=== PATIENT | female | born 1985 | race Caucasian/White ===

== ENCOUNTER → 2018-03-20 | Outpatient (CLI) | payer BC ==
[2018-03-22 01:12] LABS: CHLAMYDIA TRACHOMATIS, NAA Negative (Negative); HPV 16 Positive (Negative); HPV 18 Negative (Negative); HPV OTHER HR TYPES Negative (Negative); NEISSERIA GONORRHOEAE, NAA Negative (Negative)
== END | disposition home or self-care (01) ==
LOC: LAB SHORT 10:21 → LAB 10:21
PROVIDERS: Obstetrics & Gynecology
DX: Z36.89 Encounter for other specified antenatal screening (principal)
CPT/HCPCS: 87491; 87591; 87624; 87625; G0123

== ENCOUNTER → 2018-08-09 | Outpatient (CLI) | payer BC | END | disposition home or self-care (01) | LOC: LAB SHORT 15:51 → LAB 15:51 | DX: Z34.00 Encounter for supervision of normal first pregnancy, unspecified trimester (principal) | CPT/HCPCS: 87081; 87653 ==

== ENCOUNTER 2018-09-14 20:20 | Inpatient (IN) | payer BC ==
[~2018-09-14] VITALS: Ht 165.1 cm; Wt 73.6 kg
[2018-09-14] MEDS ORDERED: Verotin-Gr Cap1 EACH PO (23:57)
[2018-09-14] MEDS ORDERED: Excedrin Extra1 EACH PO (23:57)
[2018-09-14] MEDS ORDERED: MAGOXI400 PO (23:58)
[2018-09-15 00:07] LABS: BASOPHILS ABSOLUTE AUTO 0.04 K/mm3 (0.00-0.23); BASOPHILS PERCENT AUTO 0 % (0-2); EOSINOPHILS ABSOLUTE AUTO 0.06 K/mm3 (0.00-0.68); EOSINOPHILS PERCENT AUTO 0 % (0-6); Hematocrit 35.6 % (33.0-51.0); Hemoglobin 11.7 g/dL (11.5-16.0); IMMATURE GRAN ABSOLUTE AUTO 0.12 K/mm3 (0.00-0.10); IMMATURE GRAN PERCENT AUTO 1 % (0-1); LYMPHOCYTES ABSOLUTE AUTO 3.34 K/mm3 (0.84-5.20); LYMPHOCYTES PERCENT AUTO 22 % (21-46); MONOCYTES PERCENT AUTO 7 % (4-13); Mean Corpuscular HGB 30.2 pg (26.0-34.0); Mean Corpuscular HGB Conc 32.9 g/dL (31.5-36.5); Mean Corpuscular Volume 92 fL (80-100); Mean Platelet Volume 9.5 fL (9.1-12.4); NEUTROPHILS PERCENT AUTO 70 % (41-73); Platelet Count 429 K/mm3 (150-400); RDW Coefficient Variation 14.1 % (11.7-14.2); RDW Standard Deviation 47.1 fL (35.1-46.3); Red Blood Cell Count 3.87 M/mm3 (3.80-5.20); White Blood Cell Count 15.06 K/mm3 (4.00-11.30)
[2018-09-16 05:36] LABS: Hematocrit 27.8 % (33.0-51.0); Mean Corpuscular HGB 30.4 pg (26.0-34.0); Mean Corpuscular HGB Conc 32.4 g/dL (31.5-36.5); Mean Corpuscular Volume 94 fL (80-100); Mean Platelet Volume 9.5 fL (9.1-12.4); Platelet Count 336 K/mm3 (150-400); RDW Coefficient Variation 14.1 % (11.7-14.2); RDW Standard Deviation 47.8 fL (35.1-46.3); Red Blood Cell Count 2.96 M/mm3 (3.80-5.20); White Blood Cell Count 15.35 K/mm3 (4.00-11.30)
--- NOTE | 2018-09-16 13:34 | NUR ---
PT DISCHARED. IV DCD. PRESCRIPTIONS GIVEN. DISCHARGE INSTRUCTIONS REVIEWED WITH PT AND SO, BOTH VERBALIZED UNDERSTANDING AND DENY ANY FURTHER QUESTIONS OR CONCERNS. PT AMBULATORY TO CAR.
== END 2018-09-16 13:24 | disposition home or self-care (01) | DRG 807 ==
LOC: OBS 20:20 → BC 20:20 → OBS 23:37 → BC 23:38
PROVIDERS: ADMIT Family Medicine
PROC: 10E0XZZ Delivery of Products of Conception, External Approach (ICD-10-PCS; principal; 2018-09-15)
PROC: 0KQM0ZZ Repair Perineum Muscle, Open Approach (ICD-10-PCS; 2018-09-15)
PROC: 3E0R3BZ Introduction of Anesthetic Agent into Spinal Canal, Percutaneous Approach (ICD-10-PCS; 2018-09-15)
DX: O70.1 Second degree perineal laceration during delivery (principal); Z37.0 Single live birth; Z3A.40 40 weeks gestation of pregnancy
CPT/HCPCS: 36415; 51702; 59025; 80053; 82570; 84156; 85025; 85027; 99214; J1885; J2001; J2405; J2590; J3010; J7120

== ENCOUNTER → 2019-06-18 | Outpatient (CLI) | payer BC ==
[~2019-06-18] MED LIST: Excedrin Extra1 EACH PO; MAGOXI400 PO; Verotin-Gr Cap1 EACH PO
[2019-06-20 14:09] LABS: HPV 16 Negative (Negative); HPV 18 Negative (Negative); HPV OTHER HR TYPES Negative (Negative)
== END ==
LOC: LAB 14:07 → LAB SHORT 14:07
PROVIDERS: Obstetrics & Gynecology
DX: Z01.419 Encounter for gynecological examination (general) (routine) without abnormal findings (principal)
CPT/HCPCS: 87624; G0123

== ENCOUNTER → 2021-11-16 | Outpatient (CLI) | payer BC ==
[2021-11-17 15:10] LABS: HPV 16 Negative (Negative); HPV 18 Negative (Negative); HPV OTHER HR TYPES Negative (Negative)
== END | disposition home or self-care (01) ==
LOC: LAB SHORT 17:03 → LAB 17:03
PROVIDERS: Family Medicine
DX: Z01.419 Encounter for gynecological examination (general) (routine) without abnormal findings (principal)
CPT/HCPCS: 87624; G0123

== ENCOUNTER → 2023-12-21 | Outpatient (CLI) | payer BC ==
[2023-12-21 14:58] LABS: Source, Urine Clean Catch
[2023-12-21 16:08] LABS: Bacteria Many /hpf; Red Blood Cells, Urine 0-2 /hpf (0-2); Squamous Epithelial Cells Few /hpf (Few); White Blood Cells, Urine 0-2 /hpf (0-5)
== END ==
LOC: LAB SHORT 14:54 → LAB 14:54
PROVIDERS: Family Medicine
DX: Z34.81 Encounter for supervision of other normal pregnancy, first trimester (principal)
CPT/HCPCS: 81015; 87086

== ENCOUNTER → 2024-06-24 | Outpatient (CLI) | payer BC | LOC: LAB 17:25 → LAB SHORT 17:25 | DX: O09.93 Supervision of high risk pregnancy, unspecified, third trimester (principal); O99.013 Anemia complicating pregnancy, third trimester | CPT/HCPCS: 87081; 87150 ==

== ENCOUNTER 2024-07-15 07:25 | Inpatient (IN) | payer BC ==
[2024-07-15] VITALS (15 sets, daily range): BP systolic 135–164; BP diastolic 81–100
[~2024-07-15] VITALS: Ht 165.1 cm; Wt 92.0 kg
[2024-07-15] MEDS ORDERED: FentaNYL Citrate 50 MCG/ML 2 ML Injection IV PRN (07:50)
[2024-07-15] MEDS ORDERED: Methylergonovine Maleate 0.2MG / ML 1ML Amp IM PRN (07:55)
[2024-07-15] MEDS ORDERED: OXYTOCIN/RINGER'S LACTATE 500 ML IV PRN (07:55)
[2024-07-15] MEDS ORDERED: Acetaminophen 500 MG Tab PO PRN (07:55)
[2024-07-15] MEDS ORDERED: Lactated Ringer's 1,000 ML IV PRN (07:55)
[2024-07-15] MEDS ORDERED: Oxytocin 10 Unit / ML Vial IM PRN (07:55)
[2024-07-15] MEDS ORDERED: Lactated Ringer's 1,000 ML IV SCH ×3 (07:55→09:05)
[2024-07-15] MEDS ORDERED: Misoprostol 200 MCG Tab BC PRN (07:55)
[2024-07-15] MEDS ORDERED: Ondansetron HCl 2 MG / ML 2ML Vial IV PRN (07:55)
[2024-07-15] MEDS ORDERED: ePHEDrine Sulfate 50 MG/ML 1ML Injection XX PRN (07:55)
[2024-07-15] MEDS ORDERED: Calcium Carbonate 500 MG Tab Chew PO SCH (07:55)
[2024-07-15] MEDS ORDERED: Misoprostol 200 MCG Tab PR PRN ×2 (07:55→09:05)
[2024-07-15] MEDS ORDERED: Tranexamic Acid 100 ML IV SCH (07:55)
[2024-07-15] MEDS ORDERED: Carboprost Tromethamine 250 MCG/ML 1ML Amp IM PRN ×2 (07:55→09:10)
[2024-07-15] MEDS ORDERED: FentaNYL 2mcg/ml-Bup 0.1% Epd 250 ML EPI PRN (07:55)
[2024-07-15 08:26] LABS: BASOPHILS ABSOLUTE AUTO 0.06 K/mm3 (0.00-0.23); BASOPHILS PERCENT AUTO 1 % (0-2); EOSINOPHILS ABSOLUTE AUTO 0.14 K/mm3 (0.00-0.68); EOSINOPHILS PERCENT AUTO 1 % (0-6); Hematocrit 35.2 % (33.0-51.0); Hemoglobin 11.7 g/dL (11.5-16.0); IMMATURE GRAN ABSOLUTE AUTO 0.06 K/mm3 (0.00-0.10); IMMATURE GRAN PERCENT AUTO 1 % (0-1); LYMPHOCYTES ABSOLUTE AUTO 3.75 K/mm3 (0.84-5.20); LYMPHOCYTES PERCENT AUTO 31 % (21-46); MONOCYTES ABSOLUTE AUTO 0.78 K/mm3 (0.16-1.47); MONOCYTES PERCENT AUTO 7 % (4-13); Mean Corpuscular HGB 30.5 pg (26.0-34.0); Mean Corpuscular HGB Conc 33.2 g/dL (31.5-36.5); Mean Corpuscular Volume 92 fL (80-100); Mean Platelet Volume 10.4 fL (9.1-12.4); NEUTROPHILS ABSOLUTE AUTO 7.21 K/mm3 (1.96-9.15); NEUTROPHILS PERCENT AUTO 60 % (41-73); Platelet Count 325 K/mm3 (150-400); RDW Coefficient Variation 16.2 % (11.7-14.2); RDW Standard Deviation 54.3 fL (35.1-46.3); Red Blood Cell Count 3.83 M/mm3 (3.80-5.20)
[2024-07-15 08:47] LABS: Albumin, Blood 2.6 g/dL (3.4-5.0); Albumin/Globulin Ratio 0.7 (0.8-1.8); Bilirubin, Total 0.2 mg/dL (0.1-1.0); Bun/Creatinine Ratio 11.7 (12.0-20.0); Calcium, Blood 8.6 mg/dL (8.5-10.1); Creatinine, Blood 0.69 mg/dL (0.40-1.00); Globulin, Blood 3.9 g/dL (2.2-4.0); Potassium, Blood 4.1 mmol/L (3.5-5.5); Total Protein, Blood 6.5 g/dL (6.4-8.2)
[2024-07-15] MEDS ORDERED: Ketorolac Tromethamine 30mg Vial IV PRN (09:00)
[2024-07-15] MEDS ORDERED: Acetaminophen 325 MG TABLET PO PRN (09:05)
[2024-07-15] MEDS ORDERED: Zolpidem Tartrate 5 MG Tab PO PRN (09:05)
[2024-07-15] MEDS ORDERED: Misoprostol 100 MCG Tab PO PRN (09:05)
[2024-07-15] MEDS ORDERED: Ibuprofen 400 MG Tab PO PRN (09:05)
[2024-07-15] MEDS ORDERED: Witch Hazel/Glycerin PADS TOP PRN (09:05)
[2024-07-15] MEDS ORDERED: Benzocaine Topical Anesthetic Spray 60GM TOP PRN (09:10)
[2024-07-15] MEDS ORDERED: Misoprostol 200 MCG Tab ONE (09:10)
[2024-07-15] MEDS ORDERED: Oxytocin 10 Unit / ML Vial IM ONE (09:10)
[2024-07-15] MEDS ORDERED: OXYTOCIN/RINGER'S LACTATE 500 ML IV SCH (09:10)
[2024-07-15] MEDS ORDERED: TraZODone HCl 50 MG Tab PO PRN (09:10)
[2024-07-15] MEDS ORDERED: CITALOPRAM HBR20 M9 PO (10:48)
[2024-07-15] MEDS ORDERED: BUSPIRONE HCL10 M6 PO (10:48)
[2024-07-15] MEDS ORDERED: TRAZ50 (10:49)
[2024-07-15] MEDS ORDERED: Amphetamine Sal20 MG PO (10:49)
[2024-07-15] MEDS ORDERED: LABE100 PO (10:50)
[2024-07-15] MEDS ORDERED: ASPIRIN REGIMEN81 MG PO (10:50)
[2024-07-15] MEDS ORDERED: LORA10ER PO (10:51)
[2024-07-15] MEDS ORDERED: MELA3 (10:51)
[2024-07-15] MEDS ORDERED: FAMO20 PO (10:52)
[2024-07-15] MEDS ORDERED: Calcium Carbon500 MG PO (10:52)
--- NOTE | 2024-07-15 11:50 | NUR ---
Pt c/o increasing pain in perineum, palpates firm on left side at base of vagina and left side of anus. Still some delmis red bleeding from base perineum, Ice pack placed., able to void small amt but still having rectal/sacral pressure, unsure if she was able to fully empty her bladder.
--- NOTE | 2024-07-15 12:15 | NUR ---
bladder scan showed only 60ml post void
[2024-07-15] MEDS ORDERED: OxyCODONE HCL 5 MG TAB PO PRN (13:05)
[2024-07-15] MEDS ORDERED: HyDROXyzine HCl 25 MG Tab PO PRN (13:10)
[2024-07-15 14:27] LABS: Hematocrit 32.9 % (33.0-51.0); Hemoglobin 10.9 g/dL (11.5-16.0); Mean Corpuscular HGB Conc 33.1 g/dL (31.5-36.5); Mean Corpuscular Volume 94 fL (80-100); Mean Platelet Volume 10.6 fL (9.1-12.4); Platelet Count 331 K/mm3 (150-400); RDW Coefficient Variation 16.2 % (11.7-14.2); RDW Standard Deviation 55.3 fL (35.1-46.3); Red Blood Cell Count 3.52 M/mm3 (3.80-5.20); White Blood Cell Count 22.87 K/mm3 (4.00-11.30)
[2024-07-15 14:32] LABS: International Normalized Ratio 0.93
--- NOTE | 2024-07-15 16:34 | NUR ---
DR WILKINS UPDATED ON PT BP, ORDER FOR PT TO TAKE ANOTHER DOSE OF 100MG LABATOLOL
[2024-07-15 16:41] LABS: BAND PERCENT MAN 5 % (0-8); BASOPHILS PERCENT MAN 0 % (0-2); EOSINOPHILS PERCENT MAN 0 % (0-6); LYMPHOCYTES ABSOLUTE MAN 2.51 K/mm3 (0.84-5.20); LYMPHOCYTES PERCENT MAN 11 % (21-46); MONOCYTES ABSOLUTE MAN 1.37 K/mm3 (0.16-1.47); MONOCYTES PERCENT MAN 6 % (4-13); NEUTROPHILS ABSOLUTE MAN 18.98 K/mm3 (1.96-9.15); SEG NEUTROPHILS PERCENT MAN 78 % (41-73); TOTAL CELLS COUNTED 100
--- NOTE | 2024-07-15 16:54 | NUR ---
SPOKE WITH DR MAR ABOUT PT, BPS IMPROVED SHE PLANS TO COME IN AND DISCHARGE PT., SHE ALREADY SENT SCRIPTS TO PHARMACY
[2024-07-15] MEDS ORDERED: Labetalol HCL 100 MG TAB PO SCH (17:00)
[2024-07-15] MEDS ORDERED: OXYC5 (17:11)
[2024-07-15] MEDS ORDERED: IBU800 M1 PO (17:12)
--- NOTE | 2024-07-15 17:25 | NUR ---
Large clot passed when up to br, [address] Ruano was here when it happened, ok for pt to d/c home still.
--- NOTE | 2024-07-15 17:58 | NUR ---
Printed d/c instructions/teaching reviewed w/pt, who is experienced mother. Denies additional questions/concerns. Pt d/c'd home to care of .
[2024-07-15] MEDS ORDERED: Misoprostol 200 MCG Tab PO ONE (19:30)
[2024-07-15] MEDS ORDERED: BusPIRone HCl 10 MG Tab PO SCH (21:00)
[2024-07-16] MEDS ORDERED: Prenatal Vit/FE Fumarate/FA 1 Tab PO SCH (09:00)
[2024-07-16] MEDS ORDERED: Citalopram Hydrobromide 20 MG Tab PO SCH (09:00)
== END 2024-07-15 18:00 | disposition home or self-care (01) | DRG 806 ==
LOC: BC 07:25 → OBS 07:25 → BC 07:45
PROVIDERS: ADMIT Family Medicine
PROC: 10E0XZZ Delivery of Products of Conception, External Approach (ICD-10-PCS; principal; 2024-07-15)
PROC: 0UQMXZZ Repair Vulva, External Approach (ICD-10-PCS; 2024-07-15)
PROC: 0HQ9XZZ Repair Perineum Skin, External Approach (ICD-10-PCS; 2024-07-15)
DX: O42.02 Full-term premature rupture of membranes, onset of labor within 24 hours of rupture (principal); O10.92 Unspecified pre-existing hypertension complicating childbirth; Z37.0 Single live birth; O72.1 Other immediate postpartum hemorrhage; O99.354 Diseases of the nervous system complicating childbirth; O77.0 Labor and delivery complicated by meconium in amniotic fluid; O99.344 Other mental disorders complicating childbirth; O40.3XX0 Polyhydramnios, third trimester, not applicable or unspecified; F41.9 Anxiety disorder, unspecified; O62.3 Precipitate labor; G47.00 Insomnia, unspecified; F32.A Depression, unspecified; Z79.899 Other long term (current) drug therapy; Z90.89 Acquired absence of other organs; F90.9 Attention-deficit hyperactivity disorder, unspecified type; O99.334 Smoking (tobacco) complicating childbirth; F17.210 Nicotine dependence, cigarettes, uncomplicated; Z3A.38 38 weeks gestation of pregnancy; O70.0 First degree perineal laceration during delivery
CPT/HCPCS: 36415; 80053; 85007; 85025; 85027; 85384; 85610; 85730; 86850; 86900; 86901; A9270; J1885; J2590